=== PATIENT | male | born 1975 | race African-American/Black ===

== ENCOUNTER 2018-03-28 14:15 | Emergency (ER) | payer MEDICARE, MEDICAID ==
[2018-03-28 16:29] LABS: APPEARANCE,URINE CLEAR; BILIRUBIN,URINE NEGATIVE (NEGATIVE); COLOR,URINE YELLOW; GLUCOSE, URINE NEGATIVE (NEGATIVE); KETONES,URINE NEGATIVE (NEGATIVE); LEUKOCYTE ESTERASE,URINE NEGATIVE (NEGATIVE); NITRITE,URINE NEGATIVE (NEGATIVE); PROTEIN,URINE NEGATIVE (NEGATIVE); URINE SPECIFIC GRAVITY 1.023
[2018-03-28] MEDS ORDERED: LIDOCAINE 1% INJ-PF (10 MG/ML) 30 ML SDV INJ ONE (17:00)
[2018-03-28] MEDS ORDERED: CEFTRIAXONE INJ 250 MG VIAL IM ONE (17:00)
[2018-03-28] MEDS ORDERED: AZITHROMYCIN 250 MG TABLET PO ONE (17:01)
[2018-03-28] MEDS ORDERED: PENICILLIN G BENZATHINE 1.2 MILLION UNIT/2 ML DISP.SYRIN IM ONE (17:02)
--- NOTE | 2018-03-28 17:05 | ER Document Report ---
HPI - HPI Time Seen by Provider: 03/28/18 16:12 Pain Level: 5 Notes: Patient is a 42-year-old male who presents with chief complaint of request for STD testing. Patient reports he had unprotected sex recently and is having similar symptoms as to when he had syphilis. Patient reports that he feels an itching sensation around his rectum. Patient reports that he is HIV positive. - CONSTITUTIONAL Constitutional: DENIES: Fever, Chills - EENT EENT: DENIES: Sore Throat, Ear Pain, Eye problems - NEURO Neurology: DENIES: Headache, Weakness, Vision blurred, Dizzinesss / Vertigo - CARDIOVASCULAR Cardiovascular: DENIES: Chest pain - RESPIRATORY Respiratory: DENIES: Trouble Breathing, Coughing - GASTROINTESTINAL Gastrointestinal: DENIES: Abdominal Pain, Black / Bloody Stools - URINARY Urinary: REPORTS: Dysuria. DENIES: Urgency, Frequency - MUSCULOSKELETAL Musculoskeletal: DENIES: Extremity pain Past Medical History - General Information source: Patient - Social History Smoking Status: Unknown if Ever Smoked Frequency of alcohol use: None Drug Abuse: None Family History: Reviewed & Not Pertinent Patient has suicidal ideation: No Patient has homicidal ideation: No Renal/ Medical History: Denies: Hx Peritoneal Dialysis Infectious Medical History: Reports: Hx HIV - Immunizations Immunizations up to date: Yes Vertical Provider Document - CONSTITUTIONAL Notes: PHYSICAL EXAMINATION: GENERAL: Well-appearing, well-nourished and in no acute distress. HEAD: Atraumatic, normocephalic. EYES: Pupils equal round extraocular movements intact, conjunctiva are normal. ENT: Nares patent NECK: Normal range of motion LUNGS: No respiratory distress Musculoskeletal: Normal range of motion NEUROLOGICAL: Normal speech, normal gait. PSYCH: Normal mood, normal affect. SKIN: Warm, Dry, normal turgor, no rashes or lesions noted. Abrasion noted near anus at 8 o'clock position. Course - Re-evaluation Re-evalutation: Patient has a abrasion noted outside of his anus. He states that he had rectal intercourse without any lubrication. There is no rash that would be consistent with syphilis. Patient is requesting treatment for possible chlamydia and gonorrhea, IM Rocephin and 1 g of azithromycin will be given. Patient encouraged to use lubrication prior to any intercourse. Also discussed safe sex practices with the patient and he verbalized understanding. Chlamydia and gonorrhea are both negative. Patient made aware. - Vital Signs Vital signs: Temp Pulse Resp BP Pulse Ox 98.5 F 79 14 120/72 98 03/28/18 14:20 03/28/18 14:20 03/28/18 14:20 03/28/18 14:20 03/28/18 14:20 - Laboratory Laboratory results interpreted by me: 03/28/18 16:14 Urine Blood SMALL H Urine Urobilinogen 2.0 H Discharge - Discharge Clinical Impression: Concern about STD in male without diagnosis Condition: Stable Disposition: HOME, SELF-CARE Additional Instructions: You were treated today for possible chlamydia, gonorrhea and syphilis. This does not mean that you have these but we did cover you just in case. Please be sure to give the nurse a good phone number so that we can call you if any of your test results are positive. Please practice safe sex until we find out the results of your test.
[2018-03-28 17:52] LABS: CHLAM PCR NOT DETECTED (NOT DETECT); GON PCR NOT DETECTED (NOT DETECT)
[2018-03-28 19:06] VITALS: BP 119/82
== END 2018-03-28 19:07 | disposition home or self-care (01) ==
LOC: ER 14:15
DX: Z20.2 Contact with and (suspected) exposure to infections with a predominantly sexual mode of transmission (principal); B20 Human immunodeficiency virus [HIV] disease
CPT/HCPCS: 99283; 96372; 36415; 81001; 87491; 87591; A9270; J3490; J0561; J0696

== ENCOUNTER 2018-04-01 21:41 | Emergency (ER) | payer MEDICARE, MEDICAID ==
[2018-04-01 21:48] VITALS: BP 117/65
[2018-04-01] MEDS ORDERED: ONDANSETRON 4 MG TAB.RAPDIS PO ONE (22:39)
[2018-04-01] MEDS ORDERED: FAMOTIDINE 20 MG TABLET PO ONE (22:39)
--- NOTE | 2018-04-01 22:42 | ER Document Report ---
HPI - HPI Patient complains to provider of: skin rash Time Seen by Provider: 04/01/18 22:27 Pain Level: 4 Context: Patient is a 42-year-old male that comes emergency department for chief complaint of wanting evaluation for red splotchy area over his left inner thigh. He states he noticed it earlier today. He denies pain to the area, itching to the area, vesicles, bleeding, pustules. He states he has also had a little bit of nausea intermittently since he received an 2 days ago. He was seen 2 days ago for possible STD after unprotected anal intercourse, he was given Rocephin, azithromycin, and penicillin G for coverage. He denies dysuria , discharge, vomiting fever. He has a history of HIV that he is being treated for. - REPRODUCTIVE Reproductive: DENIES: : Past Medical History - General Information source: Patient - Social History Smoking Status: Current Every Day Smoker Chew tobacco use (# tins/day): No Frequency of alcohol use: None Drug Abuse: None Lives with: Family Family History: Reviewed & Not Pertinent Patient has suicidal ideation: No Patient has homicidal ideation: No Renal/ Medical History: Denies: Hx Peritoneal Dialysis Infectious Medical History: Reports: Hx HIV Past Surgical History: Reports: Hx Orthopedic Surgery - left foot - Immunizations Immunizations up to date: Yes Hx Diphtheria, Pertussis, Tetanus Vaccination: Yes Vertical Provider Document - CONSTITUTIONAL General Appearance: WD/WN, No Apparent Distress - INFECTION CONTROL TRAVEL OUTSIDE OF THE [place] IN LAST 30 DAYS: No - HEENT HEENT: Atraumatic, Normal ENT Exam, Normocephalic - NECK Neck: Normal Inspection - RESPIRATORY Respiratory: Breath Sounds Normal, No Respiratory Distress - CARDIOVASCULAR Cardiovascular: Regular Rate, Regular Rhythm - GI/ABDOMEN Gastrointestinal: Abdomen Soft, Abdomen Non-Tender - REPRODUCTIVE Male Genitalia: Normal Inspection - No rashes, swelling, tenderness, discharge, or other abnormality noted over the penis, testicles, scrotum, or inguinal area. Ree JIMENEZ present during exam.. negative: Abnormal Inspection - BACK Back: Normal Inspection - MUSCULOSKELETAL/EXTREMETIES Musculoskeletal/Extremeties: MAEW, FROM, Non-Tender - NEURO Level of Consciousness: Awake, Alert, Appropriate - DERM Integumentary: Warm, Dry. negative: No Rash - There is a slight irritated mildly erythematous patchy area over the left inner thigh, there is no tenderness, there is no excoriation, there is no induration or fluctuance, there are no vesicles, bulla, there is no nearby lymphadenopathy. There is no abnormal heat noted. Course - Re-evaluation Re-evalutation: Patient has a patchy minimally erythematous area over the left inner thigh, no itching to the area per patient, there is no tenderness to the area per patient , he simply noticed it. It appears to be just skin irritation. There is no evidence of any secondary infection or other abnormalities noted at this time. No necrotizing fasciitis or abscess noted. Does not appear to be herpes, there is no canker sore, there are no other symptoms reported. Patient's gonorrhea and chlamydia from 2 days ago negative. Patient is De been covered for syphilis with penicillin G. Discussed with patient. Patient states he just bought to be checked, and he is grateful. Patient states he wants something for nausea that he has felt since he took the antibiotics, his abdomen is soft and benign, he denies any other with this. Stable at time of discharge. - Vital Signs Vital signs: Temp Pulse Resp BP Pulse Ox 98.5 F 77 16 117/65 96 04/01/18 21:47 04/01/18 21:47 04/01/18 21:47 04/01/18 21:47 04/01/18 21:47 Discharge - Discharge Clinical Impression: Skin rash Condition: Stable Disposition: HOME, SELF-CARE Additional Instructions: Your evaluation shows skin irritation but no overt rash, no concerning finding related to exposure. This should simply resolve with time. In regards to intermittent nausea after the antibiotics you can take the Phenergan if needed, you can also take [id number] probiotics. Follow-up with primary care. Return for worsening including development of fluid-filled areas, pus filled areas, hardening, pain, swelling, or any other concerning symptoms. Prescriptions: Promethazine HCl [Phenergan 25 mg Tablet] 25 mg PO Q6H PRN #15 tablet PRN Reason:
== END 2018-04-01 22:52 | disposition home or self-care (01) ==
LOC: ER 21:41
DX: R21 Rash and other nonspecific skin eruption (principal); F17.200 Nicotine dependence, unspecified, uncomplicated; B20 Human immunodeficiency virus [HIV] disease
CPT/HCPCS: 99282; A9270 ×2; S0119